=== PATIENT | male | born 2000 | race Caucasian/White ===

== ENCOUNTER 2020-04-06 01:50 | Emergency (ER) | payer OTHER, SELFPAY ==
[~2020-04-06] VITALS: Ht 170.2 cm; Wt 63.5 kg
[2020-04-06 01:53] VITALS: Ht 170.2 cm; Wt 63.5 kg
[2020-04-06 02:50] VITALS: BP 127/52
== END 2020-04-06 02:50 | disposition home or self-care (01) ==
LOC: ED 01:50
DX: Z20.828 Contact with and (suspected) exposure to other viral communicable diseases (principal)
CPT/HCPCS: Q0092; U0003-CS

== ENCOUNTER 2020-10-20 02:35 | Emergency (ER) | payer OTHER, SELFPAY ==
[~2020-10-20] VITALS: Ht 170.2 cm; Wt 68.0 kg
[2020-10-20 02:37] VITALS: Ht 170.2 cm; Wt 68.0 kg
[2020-10-20 03:19] VITALS: BP 120/83
== END 2020-10-20 03:19 | disposition home or self-care (01) ==
LOC: ED 02:35
DX: J02.9 Acute pharyngitis, unspecified (principal); Z20.828 Contact with and (suspected) exposure to other viral communicable diseases
CPT/HCPCS: U0003